=== PATIENT | male | born 1995 | race Caucasian/White ===

== ENCOUNTER 2024-03-26 22:35 | Emergency (ER) | payer OTHER ==
[2024-03-26] MEDS: Ondansetron 4 MG/2 ML SDV IVPUSH ONE (23:09)
[2024-03-26] MEDS: Sodium Chloride 0.9% 1,000 ML IV ONE (23:09)
[2024-03-26] MEDS: Sodium Chloride 0.9% 2.5 ML Syringe FLUSH PRN (23:09)
[2024-03-26] MEDS: Sodium Chloride 0.9% 10 ML Syringe FLUSH PRN (23:09)
[2024-03-26 23:22] LABS: BASOPHILS ABSOLUTE AUTO 0.05 K/uL (0.00-0.20); BASOPHILS PERCENT AUTO 1.1 % (0.0-1.0); EOSINOPHILS ABSOLUTE AUTO 0.26 K/uL (0.00-0.45); EOSINOPHILS PERCENT AUTO 5.5 % (0.0-6.0); HEMATOCRIT 51.9 % (42.0-52.0); HEMOGLOBIN 19.1 g/dL (14.0-18.0); IMMATURE GRAN ABSOLUTE AUTO 0.01 K/uL (0.00-0.05); IMMATURE GRAN PERCENT AUTO 0.2 % (0.0-0.4); LYMPHOCYTES ABSOLUTE AUTO 1.46 K/uL (1.00-4.80); LYMPHOCYTES PERCENT AUTO 30.9 % (24.0-44.0); MEAN CORPUSCULAR HEMOGLOBIN 31.5 pg (28.0-32.0); MEAN CORPUSCULAR HGB CONC 36.8 g/dL (32.0-36.0); MEAN CORPUSCULAR VOLUME 85.5 fL (83.0-99.0); MEAN PLATELET VOLUME 10.6 fL (9.4-12.4); MONOCYTES ABSOLUTE AUTO 0.37 K/uL (0.00-0.80); MONOCYTES PERCENT AUTO 7.8 % (0.0-8.0); NEUTROPHILS ABSOLUTE AUTO 2.58 K/uL (1.80-7.70); NEUTROPHILS PERCENT AUTO 54.5 % (41.0-71.0); PLATELET COUNT,PLT 207 K/uL (150-400); RED BLOOD CELL COUNT 6.07 M/uL (4.52-5.90); WHITE BLOOD CELL COUNT,WBC 4.73 K/uL (3.9-11.3)
[2024-03-26 23:53] LABS: ALBUMIN 3.7 g/dL (3.4-5.0); BILIRUBIN TOTAL 0.9 mg/dL (0.2-1.0); CARBON DIOXIDE,CO2 28.3 mmol/L (21.0-32.0); CREATININE 1.3 mg/dL (0.8-1.3); EST CRCL DRUG DOSING (CG) 74.74 mL/min; PROTEIN TOTAL,TP 7.5 g/dL (6.4-8.2)
== END 2024-03-27 00:30 | disposition home or self-care (01) ==
LOC: MW.ED 22:35
DX: K29.20 Alcoholic gastritis without bleeding (principal); F10.10 Alcohol abuse, uncomplicated; E86.0 Dehydration; R11.2 Nausea with vomiting, unspecified; Z75.8 Other problems related to medical facilities and other health care
CPT/HCPCS: 36415; 80053; 80307; 83690; 85025; 96361; 96374; 99284; J2405; J3490; J7030